=== PATIENT | male | born 1965 | race Two or more races ===

== ENCOUNTER 2017-05-15 10:37 | Emergency (ER) | payer BC, MEDICAID ==
[2017-05-15] MEDS ORDERED: Ketorolac INJ* 60 MG/2 ML VIAL IM ONE (11:48)
--- NOTE | 2017-05-15 12:12 | ED ---
Back Pain - HPI Summary HPI Summary: Patient presents to the ED with acute on chronic R sided back pain. Hx of such. Denies taking medication in the past. Pain is acute onset, 2 days ago, worse with extension of the hip and better with flexin. Better with lying flat , and worse with plantar flexion of the R foot. 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 He notes to the pain as an ache, non-radiating, 7/10. Denies tingling, numbness color or temperature changes. Denies urinary symptoms. Denies b/b dysfunction. No hx of kidney stones. Denies trauma or injury. - History of Current Complaint Chief Complaint: EDBackInjuryPain Stated Complaint: FLANK PAIN Time Seen by Provider: 05/15/17 10:57 Hx Obtained From: Patient Onset/Duration: Sudden Onset Onset/Duration: Started Days Ago Timing: Constant Back Pain Location: Is Discrete @ - right flank Severity Initially: Moderate Severity Currently: Moderate Pain Intensity: 6 Pain Scale Used: 0-10 Numeric Character: Aching Aggravating Symptom(s): Movement, Bending Alleviating Symptom(s): Rest, Position, Heat Associated Signs And Symptoms: Positive: Negative - Risk Factors AAA Risk Factors: Negative TAD Risk Factors: Cauda Equina Risk Factors: Negative Epidural Abscess Risk Factors: Negative - Allergies/Home Medications Allergies/Adverse Reactions: Allergies Allergy/AdvReac Type Severity Reaction Status Date / Time No Known Allergies Allergy Verified 05/15/17 11:04 Home Medications: Home Medications Meloxicam [Mobic] 15 mg PO DAILY PRN MDD patient has been taking 2/day 05/15/17 [History Confirmed 05/15/17] PMH/Surg Hx/FS Hx/Imm Hx Previously Healthy: Yes Endocrine/Hematology History: Denies: Hx Diabetes Cardiovascular History: Denies: Hx Hypertension, Hx Pacemaker/ICD Respiratory History: Denies: Hx Asthma GI History: Reports: Hx Gastroesophageal Reflux Disease - ON MEDS, Other GI Disorders - Inguinal hernia History: Denies: Hx Dialysis, Hx Renal Disease Musculoskeletal History: Denies: Hx Scoliosis Sensory History: Reports: Hx Contacts or Glasses - GLASSES Denies: Hx Hearing Aid Opthamlomology History: Reports: Hx Contacts or Glasses - GLASSES Neurological History: Denies: Hx Headaches, Other Neuro Impairments/Disorders Psychiatric History: Denies: Hx Panic Disorder - Cancer History Hx Chemotherapy: No Hx Radiation Therapy: No - Surgical History Surgery Procedure, Year, and Place: 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 2014 [facility] Hx Anesthesia Reactions: No - WAS NOT DONE UNDER ANESTHESIA - Immunization History Hx Pertussis Vaccination: No Immunizations Up to Date: Unable to Obtain/Confirm Infectious Disease History: No Infectious Disease History: Denies: Traveled Outside the [place] in Last 30 Days - Family History Known Family History: Positive: Unknown Family History: No FHx anesthesia reaction - Social History Occupation: Employed Part-time Lives: With Family Alcohol Use: Occasionally Hx Substance Use: No Substance Use Type: Reports: None Hx Tobacco Use: No Smoking Status (MU): Former Smoker Review of Systems Constitutional: Negative Negative: Fever, Chills, Fatigue Eyes: Negative Cardiovascular: Negative Respiratory: Negative Genitourinary: Negative Positive: no symptoms reported, see HPI Positive: Myalgia - right lower back pain just superior to the iliac crest Skin: Negative Neurological: Negative All Other Systems Reviewed And Are Negative: Yes Physical Exam Triage Information Reviewed: Yes Vital Signs On Initial Exam: Initial Vitals Temp Pulse Resp BP Pulse Ox 97.7 F 61 16 124/67 98 05/15/17 10:38 05/15/17 10:38 05/15/17 10:38 05/15/17 10:38 05/15/17 10:38 Vital Signs Reviewed: Yes Appearance: Positive: Well-Appearing, Well-Nourished Skin: Positive: Warm, Skin Color Reflects Adequate Perfusion Head/Face: Positive: Normal Head/Face Inspection Eyes: Positive: EOMI, ANITA, Conjunctiva Clear Neck: Positive: Supple, No Lymphadenopathy Respiratory/Lung Sounds: Positive: Clear to Auscultation, Breath Sounds Present Cardiovascular: Positive: RRR, Pulses are Symmetrical in both Upper and Lower Extremities Musculoskeletal: Positive: Pain @ - right lower back pain just superior to the iliac crest Neurological: Positive: Sensory/Motor Intact, Speech Normal Psychiatric: Positive: Normal Diagnostics - Vital Signs Vital Signs Temp Pulse Resp BP Pulse Ox 05/15/17 10:38 97.7 F 61 16 124/67 98 - Laboratory Lab Statement: Any lab studies that have been ordered have been reviewed, and results considered in the medical decision making process. Back Pain Course/Dx - Course Course Of Treatment: Patient presents for evaluation of right lower back pain just superior to the iliac crest. Thorough physical exam was performed, focusing on thoracic and lumbar special tests and ROM. Due to patient pain around injury, physical exam was limited. Limited ROM. Flip Test negative. Straight leg raise positive. Kernig test positive. Negative Babinksi. Hip flexion and extension, knee extension, dorsiflexion, great toe extension and plantar flexion intact. Worsening pain with plantar flexion. Rotating at hips limited d/t pain. Nerve roots L4-S2 reflexes intact. L1-S2 nerve root sensory intact. No saddle anesthesia. Gait normal. Given toradol in the ED. Rx for toradol and flexeril. Encouraged Ibuprofen 600mg three times daily with meals for pain. Return precautions given. Educated patient regarding back injuries and healing time and the need for further imaging if discomfort is present for > 6 weeks. - Diagnoses Differential Diagnosis/HQI/PQRI: Positive: Herniated Disc, Strain, Sprain Provider Diagnoses: Right low back pain Discharge - Discharge Plan Condition: Stable Disposition: HOME Prescriptions: Cyclobenzaprine TAB* [Flexeril TAB*] 10 mg PO BID PRN #10 tab MDD 2 PRN Reason: Pain Ketorolac TAB * [Toradol TAB *] 10 mg PO Q6H #16 tab Patient Education Materials: Low Back Strain (ED) Referrals: Rosales Christianson MD [Primary Care Provider] - Additional Instructions: Dx. Muscle Strain Flexeril: This medication is a muscle relaxant and can help relieve muscle spasms, muscle strain, or pain sensations. Flexeril can cause side effects that may impair your thinking or reactions. Be careful if you drive or do anything that requires you to be awake and alert. Avoid drinking alcohol, which can increase some of the side effects of Flexeril. Toradol 10mg four times daily for 4 days only. Ibuprofen 600mg three times daily with meals for discomfort. DO NOT TAKE IBPUROFEN WHILE TAKING TORADOL. ONCE THE TORADOL IS GONE, YOU MAY START THE IBUPROFEN. Return to ED if symptoms worsen or fail to improve, notice worsening swelling, warmth or redness around the joint, develop fever, or pain is uncontrolled with OTC medications. Moist heat to the area for comfort. Warm showers or baths may improve symptoms. It is important to remain mobile as tolerated to prevent stiffening of the joints and delay healing. Follow up with your PCP. If symptoms remain for > 6 weeks, please seek special medical attention from an orthopedic physician.
[2017-05-15 12:23] VITALS: BP 121/94
== END 2017-05-15 12:21 | disposition home or self-care (01) ==
LOC: ED 10:37
DX: M54.9 Dorsalgia, unspecified (principal); Z87.891 Personal history of nicotine dependence
CPT/HCPCS: 96372; 99282; J1885

== ENCOUNTER 2018-06-30 06:43 | Emergency (ER) | payer BC, MEDICAID ==
--- NOTE | 2018-06-30 07:18 | ED ---
Back Pain - HPI Summary HPI Summary: The patient is a 52 y/o M presenting to [facility] with a chief complaint of aching bilateral low back pain starting a week ago with gradual worsening after lifting heavy objects. He states that this is a chronic pain that has been previously relieved with Meloxicam at home, but he has ran out of his prescription, and his PCP is currently out of town. He has since been taking Ibuprofen to no relief. The pain, which is currently rated 8/10 in severity, is aggravated by bending or flexing his legs towards his abd. He denies weakness, numbness, tingling, changes in urination, and changes in BM. He had been advised to do back exercises for the pain from physical therapy, but he reports that he hasn't been doing them often. - History of Current Complaint Chief Complaint: EDBackInjuryPain Stated Complaint: BACK PAIN Time Seen by Provider: 06/30/18 07:07 Hx Obtained From: Patient Onset/Duration: Gradual Onset, Lasting Days - once week, Still Present Onset/Duration: Started Days Ago, Still Present Timing: Lasting Days Back Pain Location: Is Discrete @ - bilateral low back Severity Initially: Moderate Severity Currently: Moderate Pain Intensity: 8 Pain Scale Used: 0-10 Numeric Character: Aching Aggravating Symptom(s): Bending, Other - flexing legs towards abd Alleviating Symptom(s): Other - Meloxicam Associated Signs And Symptoms: Positive: Other - NEGATIVE: changes in urination , changes in BM. Negative: Weakness, Numbness, Tingling - Allergies/Home Medications Allergies/Adverse Reactions: Allergies Allergy/AdvReac Type Severity Reaction Status Date / Time No Known Allergies Allergy Verified 06/30/18 06:47 PMH/Surg Hx/FS Hx/Imm Hx Endocrine/Hematology History: Denies: Hx Diabetes Cardiovascular History: Denies: Hx Hypertension, Hx Pacemaker/ICD Respiratory History: Denies: Hx Asthma GI History: Reports: Hx Gastroesophageal Reflux Disease - ON MEDS, Other GI Disorders - Inguinal hernia History: Denies: Hx Dialysis, Hx Renal Disease Musculoskeletal History: Denies: Hx Scoliosis Sensory History: Reports: Hx Contacts or Glasses - GLASSES Opthamlomology History: Reports: Hx Contacts or Glasses - GLASSES Neurological History: Denies: Hx Headaches, Other Neuro Impairments/Disorders Psychiatric History: Denies: Hx Panic Disorder - Cancer History Hx Chemotherapy: No Hx Radiation Therapy: No - Surgical History Surgery Procedure, Year, and Place: 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 2014 [facility] Hx Anesthesia Reactions: No - WAS NOT DONE UNDER ANESTHESIA Infectious Disease History: No Infectious Disease History: Denies: Traveled Outside the [place] in Last 30 Days - Family History Known Family History: Negative: Hypertension Family History: No FHx anesthesia reaction - Social History Alcohol Use: None Hx Substance Use: No Substance Use Type: Reports: None Hx Tobacco Use: No Smoking Status (MU): Former Smoker Review of Systems Positive: Other - NEGATIVE: changes in BM Positive: other - NEGATIVE: changes in urination Positive: Other - bilateral low back pain Negative: Weakness, Numbness - or tingling All Other Systems Reviewed And Are Negative: Yes Physical Exam - Summary Physical Exam Summary: Appearance: The patient is well-nourished in no acute distress and in no acute pain. Skin: The skin is warm and dry and skin color reflects adequate perfusion. HEENT: The head is normocephalic and atraumatic. The pupils are equal and reactive. The conjunctivae are clear and without drainage. Nares are patent and without drainage. Mouth reveals moist mucous membranes and the throat is without erythema and exudate. The external ears are intact. The ear canals are patent and without drainage. The tympanic membranes are intact. Neck: The neck is supple with full range of motion and non-tender. There are no carotid bruits. There is no neck vein distension. Respiratory: Chest is non-tender. Lungs are clear to auscultation and breath sounds are symmetrical and equal. Cardiovascular: Heart is regular rate and rhythm. There is no murmur or rub auscultated. There is no peripheral edema and pulses are symmetrical and equal. Abdomen: The abdomen is soft and non-tender. There are normal bowel sounds heard in all four quadrants and there is no organomegaly palpated. Musculoskeletal: There is tenderness in the paralumbar back. Extremities are non -tender with full range of motion. There is good capillary refill. There is no peripheral edema or calf tenderness elicited. Neurological: Patient is alert and oriented to person, place and time. The patient has symmetrical motor strength in all four extremities. Cranial nerves are grossly intact. Deep tendon reflexes are symmetrical and equal in all four extremities. Psychiatric: The patient has an appropriate affect and does not exhibit any anxiety or depression. Triage Information Reviewed: Yes Vital Signs On Initial Exam: Initial Vitals Temp Pulse Resp BP Pulse Ox 98.6 F 78 16 123/95 98 06/30/18 06:45 06/30/18 06:45 06/30/18 06:45 06/30/18 06:45 06/30/18 06:45 Vital Signs Reviewed: Yes Diagnostics - Vital Signs Vital Signs Temp Pulse Resp BP Pulse Ox 06/30/18 06:45 98.6 F 78 16 123/95 98 - Laboratory Lab Statement: Any lab studies that have been ordered have been reviewed, and results considered in the medical decision making process. Back Pain Course/Dx - Course Course Of Treatment: Mr. Alford presented with what was clearly musculoskeletal low back pain. He normally takes meloxicam but was out and I wrote a prescription for him. Additionally I wrote a prescription for soma to use night to break the cycle. - Diagnoses Provider Diagnoses: Low back strain Discharge - Sign-Out/Discharge Documenting (check all that apply): Patient Departure - Patient will be discharged home. - Discharge Plan Condition: Stable Disposition: HOME Prescriptions: Carisoprodol TAB* [Soma TAB*] 350 mg PO BEDTIME PRN #7 tab MDD 1 PRN Reason: Pain Meloxicam 7.5 mg PO BID #20 tab Patient Education Materials: Low Back Strain (ED) Referrals: Rosales Christianson MD [Primary Care Provider] - 3 Days Additional Instructions: Please take medications as prescribed. Follow up with your primary care provider in 2-3 days. Return to the emergency department for any new or worsening symptoms. - Billing Disposition and Condition Condition: STABLE Disposition: Home - Attestation Statements Document Initiated by Evelyn: Yes Documenting Scribe: Renetta Patterson Provider For Whom Evelyn is Documenting (Include Credential): MD Nellie Lentzibe Attestation: Renetta Moran scribed for Dr. Bladimir Mclean MD on 06/30/18 at 1041. Scribe Documentation Reviewed: Yes Provider Attestation: The documentation as recorded by the Renetta guillermo accurately reflects the service I personally performed and the decisions made by me, Dr. Bladimir Mclean MD Status of Scribe Document: Viewed
[2018-06-30 07:35] VITALS: BP 118/76
== END 2018-06-30 07:34 | disposition home or self-care (01) ==
LOC: ED 06:43
DX: S39.012A Strain of muscle, fascia and tendon of lower back, initial encounter (principal); X50.0XXA Overexertion from strenuous movement or load, initial encounter; Y92.9 Unspecified place or not applicable; K21.9 Gastro-esophageal reflux disease without esophagitis; Z87.891 Personal history of nicotine dependence
CPT/HCPCS: 99282